=== PATIENT | female | born 1980 | race Two or more races ===

== ENCOUNTER 2020-08-29 11:54 | Outpatient (CLI) | payer OTHER | END 2020-08-29 13:49 | disposition home or self-care (01) | LOC: OFIC 805 11:54 | PROVIDERS: ATTEND Otolaryngology Otology & Neurotology | DX: R59.0 Localized enlarged lymph nodes (principal) ==

== ENCOUNTER 2020-09-04 10:48 | Outpatient (CLI) | payer OTHER | END 2020-09-04 11:07 | disposition home or self-care (01) | LOC: TOM 10:48 | PROVIDERS: ATTEND Otolaryngology Otology & Neurotology | DX: R22.1 Localized swelling, mass and lump, neck (principal) ==

== ENCOUNTER 2020-09-21 08:21 | Day surgery (SDC) | payer OTHER ==
[~2020-09-21] VITALS: Ht 157.5 cm; Wt 77.1 kg
[2020-09-21] MEDS ORDERED: AMOXICILLIN500 MG PO (11:14)
== END 2020-09-21 13:20 | disposition home or self-care (01) ==
LOC: CIR.AMB 08:21
PROVIDERS: ATTEND Otolaryngology Otology & Neurotology
DX: D17.0 Benign lipomatous neoplasm of skin and subcutaneous tissue of head, face and neck (principal); Z20.822 Contact with and (suspected) exposure to COVID-19